=== PATIENT | male | born 1970 | race African-American/Black ===

== ENCOUNTER 2017-10-02 07:13 | Emergency (ER) | payer OTHER ==
--- NOTE | 2017-10-02 07:19 | PDOC ---
History of Present Illness <Katty Westbrook - Last Filed: 10/02/17 10:19> - History of Present Illness Initial Comments: 46yo M with diabetes presenting after a syncopal episode. This morning patient was standing and feeling lightheaded; he sat down, got up again, and "passed out." Episode was witnessed by his girlfriend and son who reported he had some generalized shaking for two minutes. No urinary incontinence or tongue biting. Patient felt like his normal self after the episode. The patient reports that about four months ago his PCP referred him to a dry sand molder for an abnormal EKG. The dry sand molder performed an ECHO which was normal. Stress test was not performed at that time. Denies headaches, dizziness, chest pain, palpitations, or shortness of breath. <Payton Ray - Last Filed: 10/03/17 07:10> - General Chief Complaint: Syncope/Near Syncope Stated Complaint: SYNCOPE Time Seen by Provider: 10/02/17 07:19 Past History <Katty Westbrook - Last Filed: 10/02/17 10:19> - Suicide/Smoking/Psychosocial Hx Smoking History: Never smoked Hx Alcohol Use: Yes (OCCASIONALLY) Drug/Substance Use Hx: No Substance Use Type: Alcohol <Payton Ray - Last Filed: 10/03/17 07:10> - Past Medical History Allergies/Adverse Reactions: Allergies Allergy/AdvReac Type Severity Reaction Status Date / Time No Known Allergies Allergy Verified 10/02/17 07:16 Home Medications: Ambulatory Orders Amox-Tr/K Cl [Augmentin - 500Mg Tablet] 1 tab PO BID #10 tab 10/02/17 Metformin HCl [Glucophage] 500 mg PO BID 10/02/17 Simvastatin [Zocor -] 40 mg PO HS 10/02/17 Review of Systems - Review of Systems Comments:: Constitutional: no fever, no chills HEENT: no throat pain, no dysphagia Cardiovascular: no chest pain, no palpitations Respiratory: no cough, no shortness of breath Gastrointestinal: no abdominal pain, no nausea, no vomiting, no diarrhea, no constipation Genitourinary: no dysuria, no hematuria Musculoskeletal: no myalgia, no arthralgia Skin: no rash, no itching Neurologic: no headache, no dizziness <Payton Ray Last Filed: 10/03/17 07:10> *Physical Exam - Vital Signs Last Vital Signs Temp Pulse Resp BP Pulse Ox 98.7 F 78 18 119/62 99 10/02/17 07:18 10/02/17 07:18 10/02/17 07:18 10/02/17 07:18 10/02/17 07:18 <Katty Westbrook - Last Filed: 10/02/17 10:19> - Physical Exam Comments: General: Awake, alert, and fully oriented, in no acute distress Head: no signs of trauma Eyes: PERRL, EOMI, sclera anicteric ENT: +2.5cm laceration on bridge of nose, moist mucus membranes Neck: Normal ROM, supple, no lymphadenopathy, JVD, or masses Lungs: Lungs clear, Normal breath sounds Cardio: Regular rhythm, S1 and S2 present, no murmurs, rubs, or gallops Abdomen: Soft, nontender, normal bowel sounds. No guarding, no rebound, no masses Extremities: Normal range of motion, distal pulses present SKIN: Warm, Dry, normal turgor, no rashes or lesions noted Neurologic: Cranial nerves II through XII grossly intact. Normal speech <Payton Ray - Last Filed: 10/03/17 07:10> ED Treatment Course - LABORATORY CBC & Chemistry Diagram: 10/02/17 08:09 10/02/17 08:09 - ADDITIONAL ORDERS Additional order review: Laboratory Results 10/02/17 10/02/17 08:09 08:09 Sodium 138 Potassium 3.8 Chloride 100 Carbon Dioxide 29 Anion Gap 9 BUN 13 Creatinine 1.1 Creat Clearance w eGFR > 60 Random Glucose 217 H Lactic Acid 1.3 Calcium 9.1 Total Bilirubin 0.6 AST 18 ALT 24 Alkaline Phosphatase 69 Creatine Kinase 227 Creatine Kinase Index 0.8 CK-MB (CK-2) 1.99 Troponin I < 0.02 Total Protein 7.6 Albumin 4.1 10/02/17 08:09 RBC 4.62 MCV 84.1 MCHC 33.6 RDW 12.9 MPV 8.9 Neutrophils % 62.6 Lymphocytes % 29.1 Monocytes % 7.2 Eosinophils % 0.2 Basophils % 0.9 - Medications Given in the ED: ED Medications Discontinued Medications Generic Name Dose Route Start Last Admin Trade Name Freq PRN Reason Stop Dose Admin Sodium Chloride 1,000 mls @ 1,000 mls/hr 10/02/17 08:02 10/02/17 08:07 Normal Saline - IV 10/02/17 09:01 1,000 mls/hr ASDIR STA Administration <Katty Westbrook - Last Filed: 10/02/17 10:19> - LABORATORY CBC & Chemistry Diagram: 10/02/17 08:09 10/02/17 08:09 <Payton Ray - Last Filed: 10/03/17 07:10> Medical Decision Making - Medical Decision Making 10/02/17 10:19 Dr. Aleksey Borden (Drum Handler) was paged and notified via phone service. <Katty Westbrook - Last Filed: 10/02/17 10:19> - Medical Decision Making Patient with cardiac workup with no acute pathology found. Did not receive call back from Dr. Borden. Patient has history of diabetes, glucose noted to be high. CT Face reveals nasofrontal fracture with 2.5cm laceration. Laceration irrigated and dermabonded, antibiotics sent to pharmacy. Referred to outpatient follow-up with ENT. Will discharge. Patient amenable to plan <Teri RayPayton - Last Filed: 10/03/17 07:10> *DC/Admit/Observation/Transfer <Katty Westbrook - Last Filed: 10/02/17 10:19> <Payton Ray - Last Filed: 10/03/17 07:10> Diagnosis at time of Disposition: Fracture, nose, open Qualifiers: Encounter type: initial encounter Qualified Code(s): S02.2XXB - Fracture of nasal bones, initial encounter for open fracture Syncope Qualifiers: Encounter type: initial encounter - Discharge Dispostion Disposition: HOME Condition at time of disposition: Improved - Prescriptions Prescriptions: Amox-Tr/K Cl [Augmentin - 500Mg Tablet] 1 tab PO BID #10 tab - Referrals Referrals: Jesus Alberto Hernandez MD [Primary Care Provider] - Braeden Murphy MD [Staff Physician] - Aleksey Borden [Non Staff, Medical] - - Patient Instructions Printed Discharge Instructions: DI for Syncope in Adults (Fainting), DI for Nose Fracture Additional Instructions: You came to the emergency department for syncope (fainting). We performed blood work which was unremarkable. CT imaging shows you have a nose fracture. We sent antibiotics to your pharmacy: Augment 500: 1 pill twice a day for five days You can use ice for swelling and NSAIDS (advil, tylenol) for pain control. You need to follow-up with an ENT (ear/nose/throat) doctor. We are referring you to Dr. Murphy. Call and make an appointment for the next 5-7 days. Braeden Murphy M.D., [facility] 4th floor, [address] [place], [place], [address] [place] [address] You also need to follow-up with your dry sand molder, Dr. Borden, about this syncope/ fainting. Holter monitoring may be indicated. You also need to follow-up with your Primary Care doctor, Dr. Bansal, about your high blood sugar levels. Return to the Emergency Department if: you pass out again, have any chest pain, palpitations, shortness of breath, severe headaches, changes in vision, focal numbness or weakness, any severe abdominal pain, any black, tarry stool, or any other new or concerning symptoms
[2017-10-02 07:20] VITALS: BMI 28.3
[2017-10-02] MEDS ORDERED: SODIUM CHLORIDE 1,000 ML IV STA (08:02)
[2017-10-02 08:45] LABS: ALBUMIN 4.1 g/dl (3.4-5.0); ANION GAP 9 (8-16); BILIRUBIN,TOTAL 0.6 mg/dL (0.2-1.0); BLOOD UREA NITROGEN 13 mg/dL (7-18); CALCIUM 9.1 mg/dL (8.5-10.1); CHLORIDE 100 mmol/L (98-107); CO2 29 mmol/L (21-32); CREATININE 1.1 mg/dL (0.7-1.3); GLUCOSE,RANDOM 217 mg/dL (74-106); POTASSIUM 3.8 mmol/L (3.5-5.1); SGOT/AST 18 U/L (15-37); SGPT/ALT 24 U/L (12-78); SODIUM 138 mmol/L (136-145)
[2017-10-02 08:48] LABS: ALK PHOS 69 U/L (45-117); TOT PROT 7.6 g/dl (6.4-8.2)
[2017-10-02 08:59] LABS: BASO % 0.9 % (0-2.0); EOS % 0.2 % (0-4.5); HEMATOCRIT 38.8 % (35.4-49); LYMPH % 29.1 % (8-40); MCH 28.3 pg (25.7-33.7); MCHC 33.6 g/dl (32.0-35.9); MEAN CELL VOLUME 84.1 fl (80-96); MEAN PLT VOLUME 8.9 fl (7.5-11.1); MONO % 7.2 % (3.8-10.2); NEUT % 62.6 % (42.8-82.8); PLATELET COUNT 237 K/MM3 (134-434); RBC 4.62 M/mm3 (4.00-5.60); RDW 12.9 % (11.9-15.9); WHITE BLOOD COUNT 2.8 K/mm3 (4.0-10.0)
--- NOTE | 2017-10-02 09:48 | PDOC ---
Attending Attestation - Resident Resident Name: Payton Ray - ED Attending Attestation I have performed the following: I have examined & evaluated the patient, The case was reviewed & discussed with the resident, I agree w/resident's findings & plan, Exceptions are as noted - HPI HPI: 10/02/17 09:43 46 M with h/o DM presents to ED with syncopal episode. Pt states that he got up from bed to get a drink of water and began to feel lightheaded. He sat down and felt a little better. However, as soon as he stood up, pt states that he felt very lightheaded and fainted. Pt fell forward hitting his head against the wall. His girlfriend witnessed the event and states he was unresponsive for only a minute or two. Pt woke up and returned to baseline immediately. Pt denies any CP/SOB/Palpitations prior to or after the event. Now feels completely normal, with no complaints. Pt notes that his sugars have been elevated recently, in the 200s. He is only on metformin. He endorses increased thirst and frequent urination. - Physicial Exam PE: 10/02/17 09:48 "GENERAL: Awake, alert, and fully oriented, in no acute distress. HEAD: + 1cm linear laceration to bridge of nose EYES: PERRLA, EOMI, sclera anicteric, conjunctiva clear ENT: Auricles normal inspection, hearing grossly normal, nares patent, oropharynx clear without exudates. Moist mucosa NECK: Nontender, no stepoffs, Normal ROM, supple, no lymphadenopathy, JVD, or masses LUNGS: Breath sounds equal, clear to auscultation bilaterally. No wheezes, and no crackles HEART: Regular rate and rhythm, normal S1 and S2, no murmurs, rubs or gallops ABDOMEN: Soft, nontender, normoactive bowel sounds. No guarding, no rebound. No masses EXTREMITIES: Normal range of motion, no edema. No clubbing or cyanosis. No cords, erythema, or tenderness NEUROLOGICAL: Cranial nerves II through XII intact. 5/5 strength and sensation in all extremities, Normal speech, normal gait, normal cerebellar function SKIN: Warm, Dry, normal turgor, no rashes or lesions noted. " - Medical Decision Making 10/02/17 09:48 46 M with syncopal episode. Likely 2/2 dehydration from volume loss in the context of elevated sugars. Pt with EKG notable for J point elevated in V5-V6, likely chronic. Pt without any chest pain/SOB. No evidence of arrhythmia on EKG. - Labs, trop - CT head/facial bones - IVF 10/02/17 11:[address] shows nasal bone fractures Will cover with augmentin for open nasal bone fx
[2017-10-02 12:55] VITALS: BP 131/71; PULSE 79; TEMP 99.2
--- NOTE | 2017-10-03 10:24 | EKG ---
Test Reason : Blood Pressure : / mmHG Vent. Rate : 075 BPM Atrial Rate : 075 BPM P-R Int : 140 ms QRS Dur : 088 ms QT Int : 370 ms P-R-T Axes : 058 068 022 degrees QTc Int : 413 ms NORMAL SINUS RHYTHM MINIMAL VOLTAGE CRITERIA FOR LVH, MAY BE NORMAL VARIANT ST ELEVATION, CONSIDER EARLY REPOLARIZATION, PERICARDITIS, OR INJURY ABNORMAL ECG NO PREVIOUS ECGS AVAILABLE Confirmed by HAYDEE HOLDER MD ([id number]) on 10/03/2017 10:24:08 AM Referred By: Confirmed By:HAYDEE HOLDER MD
--- NOTE | 2017-10-03 16:08 | EKG ---
Test Reason : Blood Pressure : / mmHG Vent. Rate : 083 BPM Atrial Rate : 083 BPM P-R Int : 140 ms QRS Dur : 080 ms QT Int : 352 ms P-R-T Axes : 057 068 021 degrees QTc Int : 413 ms NORMAL SINUS RHYTHM ST ELEVATION, CONSIDER EARLY REPOLARIZATION, PERICARDITIS, OR INJURY ABNORMAL ECG WHEN COMPARED WITH ECG OF 02-OCT-2017 07:27, Confirmed by HAYDEE HOLDER MD ([id number]) on 10/03/2017 4:07:30 PM Referred By: Confirmed By:HAYDEE HOLDER MD
== END 2017-10-02 12:54 | disposition home or self-care (01) ==
LOC: JER 07:13
PROC: 3E0337Z Introduction of Electrolytic and Water Balance Substance into Peripheral Vein, Percutaneous Approach (ICD-10-PCS; principal; 2017-10-02)
PROC: 0HQ1XZZ Repair Face Skin, External Approach (ICD-10-PCS; 2017-10-02)
DX: R55 Syncope and collapse (principal); S02.2XXB Fracture of nasal bones, initial encounter for open fracture; W18.09XA Striking against other object with subsequent fall, initial encounter; Y93.89 Activity, other specified; Y92.032 Bedroom in apartment as the place of occurrence of the external cause; Y99.8 Other external cause status; E11.65 Type 2 diabetes mellitus with hyperglycemia; Z79.84 Long term (current) use of oral hypoglycemic drugs; E78.00 Pure hypercholesterolemia, unspecified; E86.0 Dehydration
CPT/HCPCS: 36415; 70450-TC; 70486-TC; 80053; 82550; 82553; 83605; 84484; 85025; 93005; 93010; 99283-25; J7030